=== PATIENT | female | born 1985 | race Caucasian/White ===

== ENCOUNTER → 2017-07-24 | Outpatient (CLI) | payer OTHER ==
[~2017-07-24] MED LIST: ALBU4 PO; ALBU90OI INH; ALPR.5 PO; AN ANTIBIOTIC; ANTOXYBENA LEFTEAR; AZIT250 PO; BENZ100A PO; BIRTHCONTROL; BUPR150T2; BUTASPCAF PO; CEFU250T47 PO; CEPH500 PO; CLON1 PO; CODBUTACEC PO; CRUTCH3 XX; CYCL10 PO; Cyclobenzaprine5 MG PO; DIPH50 PO; DOXY100 PO; DULO30 PO; GABA300 PO; HYDACE10B PO; HYDACE5 PO; HYDACE5325 PO; HYDPAM25 PO; IBUP400 PO; IBUP600 PO; IBUP800 PO; KETO10 PO; LAMO100; LAMO50 PO; METCAR500 PO; METPRE4DP PO; MIGRAINE MED; MULVITMINE; Macrobid 100 M100 MG PO; Monodox100 MG PO; NAPR500 PO; NAPR550 PO; NEOPOLHCSU OT; NYSTRI30T TOP; ONDA4 PO; OXCA150; OXCA300 PO; OXYACE5T PO; PARO10 PO; PARO20 PO; PRED20 PO; PROC10 PO; PROCODE120 PO; PROM25 PO; Prednisone20 MG PO; QUET100 PO; RXCYCL10 PO; RXHYDACE PO; RXNAPNA550 PO; RXONDA4ODT MM; RXPROACE PO; Robaxin-750750 MG PO; SPACE CHAMBER1 EACH MC; SULF10OPSA OU; SULTRIDS PO; SUMA25 PO; Sudogest30 MG PO; TOPI25 PO; TRAZ100 PO; TRAZ150T57 PO; Ultram50 MG PO; Vibramycin100 MG PO; ZIPR20; Zofran Odt4 MG SL; Zyprexa PO
[2017-07-24 16:45] LABS: Source, Urine Clean Catch
[2017-07-24 18:25] LABS: Appearance, Urine Turbid (Clear); Blood, Urine 5+ (Neg); Color, Urine Amber (P-Yellow); Glucose Qualitative, Urine Neg (Neg); Ketones, Urine 2+ (Neg); Leukocyte Esterase, Urine 2+ (Neg); Nitrite, Urine Pos (Neg); Protein, Urine 2+ (Neg); Urobilinogen, Urine 2+ (Normal)
[2017-07-24 18:37] LABS: Bilirubin, Urine 1+ (Neg)
[2017-07-24 18:39] LABS: Amorphous Heavy (0-Heavy); Bacteria Few /hpf; Red Blood Cells, Urine 0-2 /hpf (0-2); Squamous Epithelial Cells Few /hpf (Few); White Blood Cells, Urine 0-2 /hpf (0-5)
== END | disposition home or self-care (01) ==
LOC: LAB 16:44
PROVIDERS: Obstetrics & Gynecology
DX: R39.9 Unspecified symptoms and signs involving the genitourinary system (principal)
CPT/HCPCS: 81001; 87077; 87086; 87186

== ENCOUNTER → 2017-08-08 | Outpatient (CLI) | payer OTHER ==
[2017-08-09 09:59] LABS: Candida species (DNA Probe) Negative (NEGATIVE); G. vaginalis (DNA Probe) Positive (NEGATIVE); T. vaginalis (DNA Probe) Negative (NEGATIVE)
== END ==
LOC: LAB SHORT 12:04
PROVIDERS: Nurse Practitioner Family
DX: N76.0 Acute vaginitis (principal)
CPT/HCPCS: 87070; 87077; 87147; 87186; 87205; 87480; 87510; 87660

== ENCOUNTER 2017-11-08 21:43 | Emergency (ER) | payer OTHER ==
[~2017-11-08] VITALS: Ht 172.7 cm; Wt 59.0 kg
[~2017-11-08 21:43] MED LIST changes: -HYDPAM25 PO; -IBUP400 PO; -METCAR500 PO; -Macrobid 100 M100 MG PO
[2017-11-08] MEDS ORDERED: METCAR500 PO (21:48)
[2017-11-08] MEDS ORDERED: HYDPAM25 PO (21:48)
[2017-11-09] MEDS ORDERED: IBUP400 PO (00:05)
== END 2017-11-09 00:17 | disposition home or self-care (01) ==
LOC: ER 21:43
DX: S01.81XA Laceration without foreign body of other part of head, initial encounter (principal); W22.8XXA Striking against or struck by other objects, initial encounter; Z91.040 Latex allergy status; Z88.8 Allergy status to other drugs, medicaments and biological substances; Z79.899 Other long term (current) drug therapy; G43.909 Migraine, unspecified, not intractable, without status migrainosus; F17.210 Nicotine dependence, cigarettes, uncomplicated

== ENCOUNTER 2017-11-14 17:16 | Observation (INO) | payer OTHER ==
[~2017-11-14] VITALS: Ht 172.7 cm; Wt 56.7 kg
[~2017-11-14 17:16] MED LIST changes: +HYDPAM25 PO; +IBUP400 PO; +METCAR500 PO
[2017-11-14 20:01] LABS: Source, Urine Clean Catch
[2017-11-14 20:08] LABS: BASOPHILS ABSOLUTE AUTO 0.01 K/mm3 (0.00-0.23); BASOPHILS PERCENT AUTO 0 % (0-2); EOSINOPHILS ABSOLUTE AUTO 0.12 K/mm3 (0.00-0.68); EOSINOPHILS PERCENT AUTO 1 % (0-6); Hematocrit 47.7 % (33.0-51.0); Hemoglobin 15.8 g/dL (11.5-16.0); IMMATURE GRAN ABSOLUTE AUTO 0.02 K/mm3 (0.00-0.10); IMMATURE GRAN PERCENT AUTO 0 % (0-1); LYMPHOCYTES ABSOLUTE AUTO 3.55 K/mm3 (0.84-5.20); LYMPHOCYTES PERCENT AUTO 37 % (21-46); MONOCYTES ABSOLUTE AUTO 0.51 K/mm3 (0.16-1.47); MONOCYTES PERCENT AUTO 5 % (4-13); Mean Corpuscular HGB 31.6 pg (26.0-34.0); Mean Corpuscular HGB Conc 33.1 g/dL (31.5-36.5); Mean Corpuscular Volume 95 fL (80-100); Mean Platelet Volume 9.9 fL (9.1-12.4); NEUTROPHILS PERCENT AUTO 56 % (41-73); Platelet Count 286 K/mm3 (150-400); RDW Coefficient Variation 12.2 % (11.7-14.2); RDW Standard Deviation 41.8 fL (35.1-46.3); White Blood Cell Count 9.51 K/mm3 (4.00-11.30)
[2017-11-14 20:13] LABS: Appearance, Urine Clear (Clear); Bilirubin, Urine Neg (Neg); Blood, Urine 1+ (Neg); Color, Urine Yellow (P-Yellow); Glucose Qualitative, Urine Neg (Neg); Ketones, Urine Neg (Neg); Leukocyte Esterase, Urine Neg (Neg); Nitrite, Urine Neg (Neg); Protein, Urine Neg (Neg); Specific Gravity, Urine 1.025 (1.003-1.022); Urobilinogen, Urine NORM (Normal)
[2017-11-14 20:25] LABS: Amorphous Light (0-Heavy); Mucus Light (0-Heavy); Squamous Epithelial Cells Mod /hpf (Few)
[2017-11-14 20:26] LABS: Bacteria Rare /hpf; Calcium Oxalate Crystals Mod /hpf; White Blood Cells, Urine 0-2 /hpf (0-5)
[2017-11-14 20:29] LABS: U Amphetamine Screen DETECTED; U Barbituate Screen Not Detected; U Benzodiazapine Screen Not Detected; U Buprenorphine Screen Not Detected; U Cannabinoids Screen Not Detected; U Cocaine Screen Not Detected; U Methadone Screen Not Detected; U Methamphetamine Screen DETECTED; U Opiates Screen Not Detected; U Oxycodone Screen Not Detected; U Phencyclidine Screen Not Detected; U Propoxyphene Screen Not Detected
[2017-11-14 20:36] LABS: Ethanol (Alcohol), Blood, Med <3 mg/dL; Salicylate <1.7 mg/dL (2.8-20.0)
[2017-11-14 20:43] LABS: Alanine Aminotransfer (ALT/SGP 16 U/L (12-78); Albumin, Blood 4.4 g/dL (3.4-5.0); Albumin/Globulin Ratio 1.3 (0.8-1.8); Alk Phos 96 U/L (50-136); Anion Gap 9 mmol/L (6-16); Aspartate Aminotrans (AST/SGOT 12 U/L (12-37); Bilirubin, Total 0.6 mg/dL (0.1-1.0); Blood Urea Nitrogen 14 mg/dL (8-24); Bun/Creatinine Ratio 21.1 (12.0-20.0); CO2, Blood 25 mmol/L (21-32); Calcium, Blood 9.1 mg/dL (8.5-10.1); Chloride, Blood 108 mmol/L (98-108); Creatinine, Blood 0.67 mg/dL (0.40-1.00); Globulin, Blood 3.4 g/dL (2.2-4.0); Glomerular Filtration Rate >60 (60-); Glucose, Blood 91 mg/dL (70-99); Potassium, Blood 3.4 mmol/L (3.5-5.5); Sodium, Blood 142 mmol/L (136-145); Thyroid Stimulating Hormone 0.407 uIU/mL (0.360-4.800); Total Protein, Blood 7.8 g/dL (6.4-8.2)
[2017-11-14 20:53] LABS: Acetaminophen, Random <2.0 ug/mL (10.0-30.0)
== END 2017-11-15 13:30 | disposition home or self-care (01) ==
LOC: ER 17:16 → EOR 17:17
PROVIDERS: Emergency Medicine
DX: S70.12XA Contusion of left thigh, initial encounter (principal); S70.11XA Contusion of right thigh, initial encounter; S40.022A Contusion of left upper arm, initial encounter; S40.021A Contusion of right upper arm, initial encounter; S09.90XA Unspecified injury of head, initial encounter; F15.10 Other stimulant abuse, uncomplicated; F32.9 Major depressive disorder, single episode, unspecified; G43.909 Migraine, unspecified, not intractable, without status migrainosus; F17.210 Nicotine dependence, cigarettes, uncomplicated; Z91.040 Latex allergy status; Z91.041 Radiographic dye allergy status; Z79.899 Other long term (current) drug therapy; Y04.2XXA Assault by strike against or bumped into by another person, initial encounter
CPT/HCPCS: 36415; 70450; 80053; 81001; 81025; 84443; 85025; 99285; G0378; G0480; Q0177

== ENCOUNTER 2017-12-15 08:31 | Emergency (ER) | payer OTHER ==
[~2017-12-15] VITALS: Ht 172.7 cm; Wt 54.4 kg
== END 2017-12-15 09:49 | disposition left against medical advice (07) ==
LOC: ER 08:31
DX: Z53.21 Procedure and treatment not carried out due to patient leaving prior to being seen by health care provider (principal)

== ENCOUNTER 2018-03-22 10:09 | Emergency (ER) | payer OTHER ==
[~2018-03-22] VITALS: Ht 172.7 cm; Wt 53.5 kg
[2018-03-22 11:11] LABS: BASOPHILS ABSOLUTE AUTO 0.01 K/mm3 (0.00-0.23); BASOPHILS PERCENT AUTO 0 % (0-2); EOSINOPHILS ABSOLUTE AUTO 0.17 K/mm3 (0.00-0.68); EOSINOPHILS PERCENT AUTO 1 % (0-6); Hematocrit 41.5 % (33.0-51.0); Hemoglobin 14.1 g/dL (11.5-16.0); IMMATURE GRAN ABSOLUTE AUTO 0.04 K/mm3 (0.00-0.10); IMMATURE GRAN PERCENT AUTO 0 % (0-1); LYMPHOCYTES ABSOLUTE AUTO 1.86 K/mm3 (0.84-5.20); LYMPHOCYTES PERCENT AUTO 13 % (21-46); MONOCYTES ABSOLUTE AUTO 0.81 K/mm3 (0.16-1.47); MONOCYTES PERCENT AUTO 6 % (4-13); Mean Corpuscular HGB 31.5 pg (26.0-34.0); Mean Corpuscular Volume 93 fL (80-100); Mean Platelet Volume 9.4 fL (9.1-12.4); NEUTROPHILS ABSOLUTE AUTO 11.44 K/mm3 (1.96-9.15); NEUTROPHILS PERCENT AUTO 80 % (41-73); Platelet Count 308 K/mm3 (150-400); RDW Coefficient Variation 11.7 % (11.7-14.2); RDW Standard Deviation 39.8 fL (35.1-46.3); Red Blood Cell Count 4.47 M/mm3 (3.80-5.20); White Blood Cell Count 14.33 K/mm3 (4.00-11.30)
[2018-03-22 11:32] LABS: Alanine Aminotransfer (ALT/SGP 18 U/L (12-78); Albumin, Blood 3.8 g/dL (3.4-5.0); Albumin/Globulin Ratio 1.1 (0.8-1.8); Alk Phos 99 U/L (50-136); Anion Gap 7 mmol/L (6-16); Aspartate Aminotrans (AST/SGOT 9 U/L (12-37); Bilirubin, Total 1.8 mg/dL (0.1-1.0); Blood Urea Nitrogen 9 mg/dL (8-24); Bun/Creatinine Ratio 12.6 (12.0-20.0); CO2, Blood 23 mmol/L (21-32); Calcium, Blood 8.8 mg/dL (8.5-10.1); Chloride, Blood 107 mmol/L (98-108); Creatinine, Blood 0.72 mg/dL (0.40-1.00); Globulin, Blood 3.5 g/dL (2.2-4.0); Glomerular Filtration Rate >60 (60-); Glucose, Blood 93 mg/dL (70-99); Potassium, Blood 3.6 mmol/L (3.5-5.5); Sodium, Blood 137 mmol/L (136-145); Total Protein, Blood 7.3 g/dL (6.4-8.2)
[2018-03-22] MEDS ORDERED: Macrobid 100 M100 MG PO (14:03)
[2018-03-22] MEDS ORDERED: KETO10 PO (14:03)
== END 2018-03-22 14:34 | disposition home or self-care (01) ==
LOC: ER 10:09
PROVIDERS: Physician Assistant
DX: N30.90 Cystitis, unspecified without hematuria (principal); F15.10 Other stimulant abuse, uncomplicated; F17.210 Nicotine dependence, cigarettes, uncomplicated
CPT/HCPCS: 36415; 74176; 76830; 76856; 80053; 81025; 85025; 96361; 96374; 96375; 99284-25; J1885; J2405; J3010; J7030

== ENCOUNTER 2018-03-23 16:40 | Emergency (ER) | payer OTHER ==
[~2018-03-23] VITALS: Ht 172.7 cm; Wt 58.1 kg
[~2018-03-23 16:40] MED LIST changes: +Macrobid 100 M100 MG PO
[2018-03-23 19:02] LABS: U Amphetamine Screen DETECTED; U Barbituate Screen Not Detected; U Benzodiazapine Screen Not Detected; U Buprenorphine Screen Not Detected; U Cannabinoids Screen Not Detected; U Cocaine Screen Not Detected; U Methadone Screen Not Detected; U Methamphetamine Screen DETECTED; U Opiates Screen Not Detected; U Oxycodone Screen Not Detected; U Phencyclidine Screen Not Detected; U Propoxyphene Screen Not Detected
== END 2018-03-23 19:18 | disposition home or self-care (01) ==
LOC: ER 16:40
PROVIDERS: Internal Medicine
DX: N39.0 Urinary tract infection, site not specified (principal); F17.210 Nicotine dependence, cigarettes, uncomplicated; Z88.8 Allergy status to other drugs, medicaments and biological substances; Z91.040 Latex allergy status; Z91.02 Food additives allergy status
CPT/HCPCS: 96372; 99284; J1885

== ENCOUNTER 2018-07-24 15:22 | Emergency (ER) | payer OTHER ==
[~2018-07-24] VITALS: Ht 172.7 cm; Wt 54.4 kg
[2018-07-24] MEDS ORDERED: IBUP400 PO (18:06)
== END 2018-07-24 18:34 | disposition home or self-care (01) ==
LOC: ER 15:22
DX: S16.1XXA Strain of muscle, fascia and tendon at neck level, initial encounter (principal); M25.531 Pain in right wrist; Y04.8XXA Assault by other bodily force, initial encounter; Z91.040 Latex allergy status; Z91.041 Radiographic dye allergy status; Z88.8 Allergy status to other drugs, medicaments and biological substances; F17.210 Nicotine dependence, cigarettes, uncomplicated
CPT/HCPCS: 72040; 73080; 73110; 96372; 99284-25; J1885

== ENCOUNTER 2018-08-18 09:03 | Emergency (ER) | payer OTHER ==
[~2018-08-18] VITALS: Ht 172.7 cm; Wt 54.4 kg
[2018-08-18] MEDS ORDERED: CYCL10 PO (11:27)
[2018-08-18] MEDS ORDERED: Naprosyn500 MG PO (11:27)
== END 2018-08-18 11:45 | disposition home or self-care (01) ==
LOC: ER 09:03
DX: S16.1XXA Strain of muscle, fascia and tendon at neck level, initial encounter (principal); S29.012A Strain of muscle and tendon of back wall of thorax, initial encounter; M25.512 Pain in left shoulder; W00.0XXA Fall on same level due to ice and snow, initial encounter; Z88.8 Allergy status to other drugs, medicaments and biological substances; Z91.040 Latex allergy status; Z91.02 Food additives allergy status; F17.210 Nicotine dependence, cigarettes, uncomplicated
CPT/HCPCS: 73030; J1885

== ENCOUNTER 2019-08-13 17:36 | Inpatient (IN) | payer SELFPAY ==
[~2019-08-13] VITALS: Ht 172.7 cm; Wt 66.2 kg
[~2019-08-13 17:36] MED LIST changes: +Naprosyn500 MG PO
[2019-08-13 19:00] LABS: BASOPHILS ABSOLUTE AUTO 0.03 K/mm3 (0.00-0.23); BASOPHILS PERCENT AUTO 0 % (0-2); EOSINOPHILS ABSOLUTE AUTO 0.04 K/mm3 (0.00-0.68); EOSINOPHILS PERCENT AUTO 0 % (0-6); Hematocrit 43.5 % (33.0-51.0); Hemoglobin 14.4 g/dL (11.5-16.0); IMMATURE GRAN ABSOLUTE AUTO 0.09 K/mm3 (0.00-0.10); IMMATURE GRAN PERCENT AUTO 1 % (0-1); LYMPHOCYTES PERCENT AUTO 10 % (21-46); MONOCYTES ABSOLUTE AUTO 1.48 K/mm3 (0.16-1.47); MONOCYTES PERCENT AUTO 8 % (4-13); Mean Corpuscular HGB 31.3 pg (26.0-34.0); Mean Corpuscular HGB Conc 33.1 g/dL (31.5-36.5); Mean Corpuscular Volume 95 fL (80-100); NEUTROPHILS ABSOLUTE AUTO 14.94 K/mm3 (1.96-9.15); NEUTROPHILS PERCENT AUTO 81 % (41-73); Platelet Count 389 K/mm3 (150-400); RDW Coefficient Variation 11.7 % (11.7-14.2); RDW Standard Deviation 40.6 fL (35.1-46.3); White Blood Cell Count 18.38 K/mm3 (4.00-11.30)
[2019-08-13 19:12] LABS: Prothrombin Time Results 10.7 Sec (9.7-11.5)
[2019-08-13 19:15] LABS: Alanine Aminotransfer (ALT/SGP 13 U/L (12-78); Albumin, Blood 3.3 g/dL (3.4-5.0); Albumin/Globulin Ratio 0.8 (0.8-1.8); Alk Phos 113 U/L (50-136); Anion Gap 6 mmol/L (6-16); Aspartate Aminotrans (AST/SGOT 11 U/L (12-37); Bilirubin, Total 0.9 mg/dL (0.1-1.0); Blood Urea Nitrogen 16 mg/dL (8-24); Bun/Creatinine Ratio 24.8 (12.0-20.0); CO2, Blood 22 mmol/L (21-32); Chloride, Blood 105 mmol/L (98-108); Creatinine, Blood 0.64 mg/dL (0.40-1.00); Glomerular Filtration Rate >60 (60-); Glucose, Blood 131 mg/dL (70-99); Potassium, Blood 4.1 mmol/L (3.5-5.5); Sodium, Blood 133 mmol/L (136-145); Total Protein, Blood 7.3 g/dL (6.4-8.2)
[2019-08-13] MEDS ORDERED: LITH300C PO (23:47)
[2019-08-13] MEDS ORDERED: ZOLP5 PO (23:48)
[2019-08-13] MEDS ORDERED: ALBU90OI INH (23:49)
[2019-08-13] MEDS ORDERED: DIAZ5 PO (23:49)
[2019-08-13] MEDS ORDERED: ALPR.5 PO (23:50)
[2019-08-13] MEDS ORDERED: GABA300 PO (23:51)
[2019-08-13] MEDS ORDERED: SERT100 PO (23:51)
--- NOTE | 2019-08-14 00:31 | NUR ---
LATE ENTRY 0000 PATIENT STATED THAT SHE REALLY NEEDED TO GO OUTSIDE TO SMOKE AND TO SAY GOODBYE TO HER FRIENDS. THIS RN STATED THAT WE HAVE A POLICY HERE IN THE HOSPITAL THAT STATES THAT YOU MUST BE BACK IN YOUR ROOM WITHIN AN HOUR AFTER LEAVING; PATIENT AGREEABLE. THIS RN ALSO EXPLAINED TO HER THAT SHE WOULD NEED TO BE ABLE TO SELF AMBULATE OR HAVE SOMEONE WHEEL HER DOWN; PATIENT AGREEABLE.
--- NOTE | 2019-08-14 04:27 | NUR ---
SHIFT SUMMARY RECIEVED REPORT FROM MARY NAIR, ED @ 2545. ARRIVED TO MEDICAL FLOOR VIA STRETCHER @ 2248. ASSISTANCE REQUIRED TO TRANSFER FROM STRETCHER TO BED. ORIENTED TO ROOM AND CALL SYSTEM. ACCOMPANIED BY FRIENDS AND FAMILY. A/O, ABLE TO MAKE NEEDS KNOWN. COOPERATIVE WITH CARE. C/O PAIN/DISCOMFORT TO LLE RATED 8/10; MEDICATED PER EMAR. IV ABX INFUSED. SLIGHTLY TACHYCARDIC/AFEBRILE. ALL OTHER VS STABLE. APPEARED TO REST MUCH OF SHIFT. S/O AT BEDSIDE. BED IN LOWEST POSITION. CALL LIGHT AND BELONGINGS WITHIN REACH. WCTM. REPORT TO MICHAEL NAIR.
[2019-08-14 09:44] LABS: Hematocrit 38.8 % (33.0-51.0); Hemoglobin 12.6 g/dL (11.5-16.0); Mean Corpuscular HGB 30.4 pg (26.0-34.0); Mean Corpuscular HGB Conc 32.5 g/dL (31.5-36.5); Mean Corpuscular Volume 94 fL (80-100); Platelet Count 312 K/mm3 (150-400); RDW Coefficient Variation 11.9 % (11.7-14.2); RDW Standard Deviation 40.8 fL (35.1-46.3); Red Blood Cell Count 4.14 M/mm3 (3.80-5.20); White Blood Cell Count 16.58 K/mm3 (4.00-11.30)
[2019-08-14 17:24] LABS: Source, Urine Clean Catch
--- NOTE | 2019-08-14 17:24 | NUR ---
PT HAS SLEPT MOST OF THE DAY. SHE WAKES FOR MEALS. PT IS ALERT AND ORIENTED WHILE AWAKE. SHE HAS GONE OUT TO SMOKE ONCE, TAMPER TAPE APPLIED TO IV SITE. IT SUPPORT ENGINEER HAS BEEN SLEEPIN ON COUCH ALL SHIFT. NO ISSUES AT THIS POINT. NO ACUTE CHANGES. PATIENT ALLOWED LAB TO DRAW BLOOD AFTER SOME GENTLE PERSUASION FROM STAFF. URINE SAMPLE WAS OBTAINED WELL. CALL LIGHT WITHIN REACH.
[2019-08-14 17:36] LABS: Bilirubin, Urine Neg (Neg); Blood, Urine Neg (Neg); Glucose Qualitative, Urine Neg (Neg); Ketones, Urine Neg (Neg); Leukocyte Esterase, Urine 1+ (Neg); Nitrite, Urine Neg (Neg); Protein, Urine Neg (Neg); Specific Gravity, Urine 1.015 (1.003-1.022); Urobilinogen, Urine NORM (Normal)
[2019-08-14 17:45] LABS: Appearance, Urine Hazy (Clear); Color, Urine Yellow (P-Yellow)
[2019-08-14 17:46] LABS: Red Blood Cells, Urine 0-2 /hpf (0-2)
[2019-08-14 17:47] LABS: Bacteria Few /hpf; Squamous Epithelial Cells Mod /hpf (Few)
[2019-08-14 17:52] LABS: Trichomonas Rare /hpf
[2019-08-14 22:57] LABS: Vancomycin, Trough 6.6 ug/mL (5.0-10.0)
--- NOTE | 2019-08-15 04:25 | NUR ---
5424 PHYSICIAN CORRESPONDENCE NOTIFIED ON-CALL PROVIDER DR. NIX ABOUT PATIENT VEWS SCORE. EXPLAINED THAT SINCE ARRIVAL PATIENTS VS HAVE REMAINED WITHIN THE SAME RANGE AND HAS BEEN FEBRILE. PATIENTS LACTIC ACID THAT WAS DRAWN IN THE ED WAS 1.2. PHYSICIAN WILL ORDER FLUIDS.
--- NOTE | 2019-08-15 04:36 | NUR ---
SHIFT SUMMARY A/O, ABLE TO MAKE NEEDS KNOWN. COOPERATIVE WITH CARE. CALLS AND ANSWERS QUESTIONS APPROPRIATELY. C/O PAIN/ANXIETY X1; MEDICATED PER EMAR. RECIEVED SHOWER. IV ABX INFUSED WITHOUT COMPLICATION. APPEARED TO REST MUCH OF SHIFT. FLUIDS ORDERED (SEE PREVIOUS RN NOTE). WCTM. BED IN LOWEST POSITION. CALL LIGHT AND BELONGINGS WITHIN REACH. REPORT TO ONCOMING RN.
--- NOTE | 2019-08-15 08:34 | NUR ---
PT VERY AGGRESSIVE WITH STAFF THIS MORNING . PT WAS VERY UPSET WHEN NURSE WALKED IN WITH IV MEDS THAT WERE DUE AT 0830. NURSE EXPLAINED THAT THEY WERE DUE AND SINCE BREAKFAST HAD BEEN BROUGHT IN PRIOR THAT PT HAD BEEN UP . LINE ASSIGNER WAS IN DURING THIS TIME WHICH AT FIRST SHE REFUSED A DRAW BUT THEN CHANGED HER MIND SINCE SHE HAD IV ABX RUNNING AND BY THEN WAS EATING.
[2019-08-15 08:55] LABS: BASOPHILS ABSOLUTE AUTO 0.01 K/mm3 (0.00-0.23); BASOPHILS PERCENT AUTO 0 % (0-2); EOSINOPHILS ABSOLUTE AUTO 0.08 K/mm3 (0.00-0.68); EOSINOPHILS PERCENT AUTO 1 % (0-6); Hematocrit 37.3 % (33.0-51.0); Hemoglobin 12.1 g/dL (11.5-16.0); IMMATURE GRAN ABSOLUTE AUTO 0.09 K/mm3 (0.00-0.10); IMMATURE GRAN PERCENT AUTO 1 % (0-1); LYMPHOCYTES ABSOLUTE AUTO 2.76 K/mm3 (0.84-5.20); LYMPHOCYTES PERCENT AUTO 19 % (21-46); MONOCYTES ABSOLUTE AUTO 1.19 K/mm3 (0.16-1.47); MONOCYTES PERCENT AUTO 8 % (4-13); Mean Corpuscular HGB Conc 32.4 g/dL (31.5-36.5); Mean Corpuscular Volume 96 fL (80-100); Mean Platelet Volume 9.1 fL (9.1-12.4); NEUTROPHILS ABSOLUTE AUTO 10.15 K/mm3 (1.96-9.15); NEUTROPHILS PERCENT AUTO 71 % (41-73); Platelet Count 286 K/mm3 (150-400); RDW Coefficient Variation 11.8 % (11.7-14.2); RDW Standard Deviation 41.1 fL (35.1-46.3); White Blood Cell Count 14.28 K/mm3 (4.00-11.30)
[2019-08-15 09:11] LABS: Anion Gap 4 mmol/L (6-16); Blood Urea Nitrogen 13 mg/dL (8-24); Bun/Creatinine Ratio 18.5 (12.0-20.0); CO2, Blood 24 mmol/L (21-32); Calcium, Blood 8.3 mg/dL (8.5-10.1); Chloride, Blood 110 mmol/L (98-108); Glomerular Filtration Rate >60 (60-); Glucose, Blood 110 mg/dL (70-99); Potassium, Blood 3.9 mmol/L (3.5-5.5); Sodium, Blood 138 mmol/L (136-145)
--- NOTE | 2019-08-15 13:59 | NUR ---
PTS BECAME VERY AGGITATED AND STARTED PULLING AT LINES . IV WAS NO LONGER PATENT EVEN AFTER NURSE TRIED TO SAVE IT. PT BECAME AGGRESSIVE GRABBING AT NURSE. NURSE CALLED FOR SECURITY. PT ATTEMPTED TO CRAWL OUT THE ROOM TO LEAVE, NURSE TOLD HER SHE COULD LEAVE AND WOULD GET THE AMA FORM. SECURITY ARRIVED AND PT WAS HELPED BACK TO BED. NURSE STATED SHE WOULD LET PT SLEEP FOR AN HOUR BUT NEEDED TO GET IV PLACED PT IS ON LR DUE TO CELLULITIS. NURSE TOLD PT SHE WOULD NOT BE DOING THE IV AND WOULD FIND ANOTHER NURSE.
--- NOTE | 2019-08-15 16:06 | NUR ---
PROCEDURE NURSE IN TO PLACE IV. PATIENT BECAME VERY AGGITATED AND DEMONSTRATED AGGRESSIVE BEHAVIOR SCREAMING AND YELLING AT HANDLE TURNER "IF YOU DO NOT STOP TOUCHING ME I WILL FUCKING SLUG YOU IN YOUR STOMACH?" THE PROFANITIES AND SCREAMING CONTINUES WITH ADDITIONAL THREATS. IV EVENTUALLY PLACED. PRIMARY RN NOTIFIED
--- NOTE | 2019-08-15 16:47 | NUR ---
pt refused vital signs at 1645
--- NOTE | 2019-08-15 18:06 | NUR ---
PT HAS BEEN VIOLENT BOTH PHYSICALLY AND VERBALLY TO STAFF THIS WHOLE SHIFT. THE ONLY QUIET WAS WHEN SHE WAS OUT SMOKING OR SLEEPING. SECURITY CALLED AND BACK UP NURSES NEEDED THROUGH OUT THE SHIFT. DURING AN OUTRAGE PT PULLED OUT IV WHICH RESULTED IN A NEW ONE NEEDING TO BE PLACED. DURING THIS EPISODE PT STATED SHE WAS LEAVING SO THIS NURSE WENT TO GET THE AMA PAPERS WHILE PT WAS GETTING DOWN ON THE FLOOR TO CRAWL OUT. HER FRIENDS STEPPED IN AND GOT HER BACK INTO BED AND PT CHANGED HER MIND TO STAY. DURING THE APPLICATION OF THE NEW IV PATIENT THREATENED TO PUNCH THE VERY NURSE IN HER BELLY. PT DEMANDS TO GO OUT TO SMOKE OR SHE WILL NOT ALLOW NURSE TO ACCOUNTS COLLECTOR THE LR WHICH HAS BEEN SCHEDULED TO RUN ALL SHIFT. PT IS NON COMPLIANT WITH NEARLY ALL CARES AND BELLIGERENT WITH ALL STAFF. CALL LIGHT WITHIN REACH.
[2019-08-15 21:40] LABS: Vancomycin, Trough 14.6 ug/mL (5.0-10.0)
--- NOTE | 2019-08-16 03:29 | NUR ---
8104 PATIENT CONVERSTATION EXPRESSED THAT SHE HAS BEEN DRINKING SINCE 0000. STATES WILL NOT HAVE SURGERY TODAY 07/16/19. STATES HUNGRY/THIRSTY AND REQUESTING SOMETHING TO EAT/DRINK. EDUCATED THAT IF PATIENT EATS OR DRINKS SHE MAY NOT HAVE HER SX PROCEDURE. PATIENT STATES UNDERSTANDING, BUT REITERATES THAT SHE WILL NOT GOING TO HAVE SURGERY TODAY 07/16/19 ANYWAYS. WILL RELAY NON-COMPLIANCE TO DAY SHIFT RN.
--- NOTE | 2019-08-16 04:39 | NUR ---
SHIFT SUMMARY A/O, ABLE TO MAKE NEEDS KNOWN. COOPERATIVE WITH CARE; UNTIL AROUND 0300 (SEE PREVIOUS RN NOTE). C/O PAIN/DISCOMFORT X1 TO LLE; MEDICATED PER EMAR. TO HAVE A CONSULT WITH ORTHO TODAY. VITAL SIGNS REMAIN ON TREND WITH PREVIOUS. REMAINS FEBRILE. OUT TO SMOKE WITH S/O AND SISTER WHOM HAVE REMAINED @ BEDSIDE T/O NIGHT. IV ABX INFUSED WITHOUT COMPLICATION WELL CONTINUOUS LR. NO OTHER ACUTE CHANGES NOTED. WCTM. BED IN LOWEST POSITION. CALL LIGHT AND BELONGINGS WITHIN REACH. REPORT TO ONCOMING RN.
[2019-08-16 09:10] LABS: BASOPHILS ABSOLUTE AUTO 0.01 K/mm3 (0.00-0.23); BASOPHILS PERCENT AUTO 0 % (0-2); EOSINOPHILS ABSOLUTE AUTO 0.11 K/mm3 (0.00-0.68); EOSINOPHILS PERCENT AUTO 1 % (0-6); Hematocrit 34.4 % (33.0-51.0); Hemoglobin 11.1 g/dL (11.5-16.0); IMMATURE GRAN ABSOLUTE AUTO 0.06 K/mm3 (0.00-0.10); IMMATURE GRAN PERCENT AUTO 1 % (0-1); LYMPHOCYTES ABSOLUTE AUTO 2.03 K/mm3 (0.84-5.20); LYMPHOCYTES PERCENT AUTO 17 % (21-46); MONOCYTES ABSOLUTE AUTO 0.71 K/mm3 (0.16-1.47); MONOCYTES PERCENT AUTO 6 % (4-13); Mean Corpuscular HGB Conc 32.3 g/dL (31.5-36.5); Mean Corpuscular Volume 96 fL (80-100); Mean Platelet Volume 9.2 fL (9.1-12.4); NEUTROPHILS ABSOLUTE AUTO 9.03 K/mm3 (1.96-9.15); NEUTROPHILS PERCENT AUTO 76 % (41-73); Platelet Count 286 K/mm3 (150-400); RDW Coefficient Variation 11.4 % (11.7-14.2); RDW Standard Deviation 40.6 fL (35.1-46.3); Red Blood Cell Count 3.58 M/mm3 (3.80-5.20); White Blood Cell Count 11.95 K/mm3 (4.00-11.30)
[2019-08-16 09:30] LABS: Anion Gap 4 mmol/L (6-16); Blood Urea Nitrogen 11 mg/dL (8-24); Bun/Creatinine Ratio 19.8 (12.0-20.0); CO2, Blood 25 mmol/L (21-32); Calcium, Blood 8.4 mg/dL (8.5-10.1); Chloride, Blood 107 mmol/L (98-108); Creatinine, Blood 0.56 mg/dL (0.40-1.00); Glomerular Filtration Rate >60 (60-); Glucose, Blood 115 mg/dL (70-99); Potassium, Blood 3.8 mmol/L (3.5-5.5); Sodium, Blood 136 mmol/L (136-145)
--- NOTE | 2019-08-16 12:41 | NUR ---
SHE WENT OUTSIDE 30 MIN AGO WHEELING HERSELF IN A W/C. BOTH FEET UP ON PEDDLES. LEFT LOWER LEG WOUND APPARENTLY EXTENDED OVER THE WEEKEND. WAS HERE AND IS SCHEDULING HER FOR SURGERY TOMORROW SINCE SHE REFUSED TO REMAIN NPO LAST NIGHT. SHE HAS AGREED TO REMAIN NPO FOR 8 HRS. HE SAID HE DID NOT KNOW WHAT TIME THE OR IS OPEN FOR HER TOMORROW. I RECEIVED AN ORDER FROM FOR D5LR TONIGHT WHILE NPO BECAUSE THE PATIENT IS WORRIED ABOUT HYPOGLYCEMIA. SHE DC'D THE CURRENT 2ND BAG OF LR IT IS UNNECESSARY. SHE NOW IS ARRIVING BACK TO HER ROOM WITH 3 FRIENDS.
--- NOTE | 2019-08-16 16:35 | NUR ---
SHE SHOWERED THIS AFTERNOON THEN WAS UPSET AND CHOSE TO WALK TO THE OUTSIDE INSTEAD OF USING THE W/C THAT WAS IN HER ROOM. HER FRIEND KE HAD LEFT THE ROOM. SHE KNEW WE NEEDED TO CONNECT HER 2PM ANTIBIOTIC BUT LEFT ANYWAY. ON RETURN FROM OUTSIDE (A FRIEND WHEELED HER BACK UP HERE), HER LEFT CALF WAS BLEEDING A LITTLE. SHE ALLOWED ME TO LIGHTLY CLEAN IT AND PUT A NONADHERENT PAD AND EROS WRAP ON. SHE REFUSED HER 2 AFTERNOON IV ANTIBIOTICS. SHE SAID HER PAIN IS OUT OF CONTROL. I HAD THIS CONVERSATION WITH EARLIER. HER OXY WAS DOUBLED. SHE TOOK THAT AND XANAX TOGETHER AT 1150. IT IS TOO SOON FOR MORE. SHE REFUSES TYLENOL AND SEROQUEL. SHE HAS BEEN SWEARING AND SAYS SHE CAN'T STAND BEING HERE. WILL CONTINUE TO TRY TO CARE FOR HER.
--- NOTE | 2019-08-16 18:20 | NUR ---
SHE IS TALKING OF GOING AMA. SHE REFUSED HER AFTERNOON ANTIBIOTICS. SHE SHOWERED. SHE IS IN HER OWN PAJAMAS BUT FEELS LIKE SHE HAS NOTHING TO WEAR. SHE WANTS TO GO HOME AND GET CLOTHES. SHE SAYS NO ONE CAN BRING THEM. I EXPLAINED THAT IS NOT POSSIBLE. SHE UNDERSTANDS IF SHE WANTS SURGERY, SHE NEEDS TO BE NPO AFTER MN. D5LR IS ORDERED FOR WHEN SHE IS NPO. OXYCODONE AND XANAX GIVEN X2. SHE REFUSES TYLENOL AND SEROQUEL. SHE SAYS SHE WILL TAKE THE SEROQUEL WITH HER TRAZADONE TONIGHT THOUGH.
--- NOTE | 2019-08-16 21:04 | NUR ---
1934- ALEJANDRINA LEFT WITH A BAG OF CLOTHES IN A BACKPACK STATING SHE WAS LEAVING TO GO VISIT HER GRANDMOTHER UP AT [facility]. INFORMED HER THAT IF SHE LEAVES SHE WILL BE DISCHARGED. SHE INFORMED ME THAT SHE WILL BE BACK BUT SHE IS LEAVING NO MATTER WHAT. OFFERED HER THE AMA PAPERWORK, SHE DID NOT WANT TO SIGN IT. CALLED CHARGE NURSE JOHNSON AND INFORMED OF THE SITUATION. SHE SAID TO GIVE IT AN HOUR PER REGULATIONS AND IF NOT BACK WE WILL DISCHARGE HER. SHE ALSO REFUSED VITALS AND ASSESSMENT. 2106- PATIENT STILL NOT BACK OF THIS TIME, CHARGE NURSE ELIZABETH INFORMED.
--- NOTE | 2019-08-16 21:28 | NUR ---
PT HAS RETURNED TO ROOM
--- NOTE | 2019-08-16 22:50 | NUR ---
2134- CHARGE NURSE'S AND I WERE IN THE MIDDLE OF DISCHARGEING THE PATIENT SHE HAD NOT RETURNED AND IT HAS BEEN 2 HOURS. WHEN SHE WAS BEING BROUGHT UP THE HALLWAY BY A MAN PUSHING HER IN THE WHEELCHAIR. SHE WAS CRYING AND SAYING SHE WAS AFRAID SHE MIGHT LOSE HER LEG. CHARGE NURSE ELIZABETH INFORMED HER THAT SHE ALMOST GOT DISCHARGED, AND REVIEWED THE RULES WITH HER. SHE WAS ASSISTED INTO THE ROOM. SHE HAD SEVERAL REQUEST LIKE LINEN CHANGE, LIST OF SNACKS SHE WANTED, TO TAKE A SHOWER, ECT. SHE REFUSED HER MEDS AT THIS TIME. INFORMED HER THAT I WOULD BE HOOKING TO AN IV THAT WILL BE ATTACHED ALL NIGHT AND SHE WOULD NOT BE ALLOWED TO GO OUTSIDE. SHE SAID SHE UNDERSTOOD. 2249-ALEJANDRINA IS IN BED, FAMILY FRIEND IS AT THE BEDSIDE. SHE AGREED TO BE HOOKED UP TO IV ANTIBOTICS. FINALLY GOT HER TO TAKE HER NIGHT MEDS. AGAIN INFORMED HER THAT SHE WILL BE HOOKED UP TO THE IV THE REST OF THE NIGHT. IV FLUSHED. ANTIBOTIC HUNG.
--- NOTE | 2019-08-17 00:48 | NUR ---
SCD'S ORDERED PATIENT REFUSED TO HAVE ON.
--- NOTE | 2019-08-17 05:24 | NUR ---
SHIFT SUMMARY: ALEJANDRINA LEFT FOR 2 HOURS AT START OF SHIFT, STATES SHE WAS IN A MOTERHOME OUT IN THE PARKING LOT WITH SOME FRIENDS. SHE WAS ALMOST DISCHAGED AMA, BUT WE WERE PACKING UP HER ROOM SHE RETURNED TO HER ROOM. SHE WAS INFORMED AGAIN THAT SHE IS NOT TO LEAVE THE HOSPTIAL FOR MORE THEN AN HOUR OR SHE WILL BE DISCHARGED. SHE WAS VERY UPSET STATING SHE GOT SCARED ABOUT LOSING HER LEG. REASSURRED HER THAT IS NOT THE CASE. SHE HAD FAMILY FRIEND SHOWED UP SHORTLY AFTER HER RETURN, WHICH HELPED TO CALM HER DOWN AND GET HER TO COOPERATE. CIRILO TOOK HER NIGHT MEDS AND ALLOWED HER IV TO BE HOOKED UP TO ANTIBOTICS. HER FRIEND LEFT AND ANOTHER ONE SHOWED UP AND STAYED THE REST OF THE NIGHT IN THE ROOM. CIRILO FELL ASLEEP AFTER TAKING HER SEREQUEL AND TRAZADONE AND HAS BEEN ASLEEP THE REST OF THE NIGHT. IV HAS BEEN INFUSING D5LR. SHE HAS NPO FAR WE KNOW SINCE 2 AM. DRESSING TO THE LEG WAS REMOVED FOR HER TO TAKE A SHOWER AND IT WAS NEVER PUT BACK ON ALLOWING IT TO BE OPEN TO AIR. DRAINAGE WAS MILD SEROUS SANGUOUS. REDNESS WAS ALL THE WAY AROUND THE LEG AND LEG WAS SWOLLEN. NO OTHER ACUTE CHANGES OCCURRED THIS SHIFT. WILL REPORT TO DAY SHIFT.
--- NOTE | 2019-08-17 06:10 | NUR ---
PT HAS REFUSED TO HAVE MORNING VITAL SIGNS TAKEN
--- NOTE | 2019-08-17 11:36 | NUR ---
TO SURGERY VIA [facility]. HER FRIEND MAULIK THAT HAS BEEN WITH HER SINCE LAST NIGHT WENT WITH HER. SHE HAS SLEPT ALL MORNING EXCEPT FOR GETTING UP TO THE [facility] ABOUT 0915 TO VOID. SHE WAS COOPERATIVE WHEN SURGERY RN ARRIVED. SHE REMOVED HER CLOTHES AND PUT HER HOSPITAL GOWN ON. SHE STOOD AND TRANSFERRED TO THE [facility]. SHE ASKED TO GO OUT AND SMOKE BUT THERE WASN'T TIME. SMALL SPOT OF BLOOD ON BOTTOM SHEET FROM HER L LEG WOUND. IVF'S STOPPED FOR TRANSPORT AND FLUSHED WELL.
--- NOTE | 2019-08-17 12:48 | NUR ---
History, Chart, Medications and Allergies reviewed before start of procedure.Patient confirms NPO status and agrees with scheduled surgery. Pre-Op teaching done. Pt verbalizes understanding. THE PATIENT WAS BROUGHT DOWN FROM THE MEDICAL FLOOR, AND WAS VERY SLEEPY. THE PATIENT WILL RESPOND TO VEABAL REQUEST THAT HAVE TO BE REPEATED.
--- NOTE | 2019-08-17 13:52 | NUR ---
08/17/19 1352 Radha Holcomb PT ON SCHEDULED ABX.
[2019-08-17 17:23] LABS: Vancomycin, Trough 6.9 ug/mL (5.0-10.0)
--- NOTE | 2019-08-17 18:19 | NUR ---
SHE RETURNED FROM O.R. AT 1500. SHE WAS SLEEPY BUT AROUSABLE. MAULIK IS AT HER SIDE. VSS. NO DRAINAGE EVIDENT THROUGH THE L LEG EROS WRAP. L LEG ELEVATED ON 2 PILLOWS. SHE HAS MOSTLY SLEPT BUT WOKE UP AND ATE 2 CANDY BARS. SHE VOIDED ON BSC. SHE SAID HER LEG WAS REALLY BURNING. I GAVE HER OXYCODONE AND XANAX. SHE WAS DISAPPOINTED THAT IT WASN'T MORE BUT WAS COOPERATIVE. A POWERGLIDE WAS PUT INTO HER CACHORRO. POST OP IVF'S STARTED AND ANTIBIOTICS RESUMED.
--- NOTE | 2019-08-17 20:38 | NUR ---
2037-ALEJANDRINA WAS SITTING UP RIGHT IN BED, SOUND ASLEEP. IV INFUSING TO POWERGLIDE IN THE RIGHT UPPER ARM. ALEJANDRINA WAS VERY LETHARGIC BUT WAS ABLE TO OPEN HER EYES AND FOLLOW DIRECTION WHEN ASKED. WAS GOING TO WITHOLD THE TRAZADONE DUE TO HER SLEEPY STATE BUT SHE SAID SHE WANTED IT. WILL MONITOR HER THROUGHOUT THE NIGHT WITH IT. CONTINUOUS BIOX IS ON AND SATS ARE IN THE 90'S. HUNG ANTIBOTIC THAT WAS DUE FOR DAY SHIFT, THEY RAN LATE ON IV MEDS. SHE TOOK ALL HER MEDS WITH NO PROBLEMS. LEFT LEG ON PILLOWS EROS WRAP OVER DRESSING IS INTACT. WILL CONTINUE TO MONITOR.
[2019-08-18 05:52] LABS: BASOPHILS ABSOLUTE AUTO 0.01 K/mm3 (0.00-0.23); BASOPHILS PERCENT AUTO 0 % (0-2); EOSINOPHILS PERCENT AUTO 0 % (0-6); Hematocrit 34.4 % (33.0-51.0); Hemoglobin 11.1 g/dL (11.5-16.0); IMMATURE GRAN ABSOLUTE AUTO 0.04 K/mm3 (0.00-0.10); IMMATURE GRAN PERCENT AUTO 0 % (0-1); LYMPHOCYTES ABSOLUTE AUTO 1.11 K/mm3 (0.84-5.20); LYMPHOCYTES PERCENT AUTO 10 % (21-46); MONOCYTES ABSOLUTE AUTO 0.26 K/mm3 (0.16-1.47); MONOCYTES PERCENT AUTO 2 % (4-13); Mean Corpuscular HGB 30.8 pg (26.0-34.0); Mean Corpuscular HGB Conc 32.3 g/dL (31.5-36.5); Mean Corpuscular Volume 96 fL (80-100); Mean Platelet Volume 10.1 fL (9.1-12.4); NEUTROPHILS ABSOLUTE AUTO 9.93 K/mm3 (1.96-9.15); NEUTROPHILS PERCENT AUTO 87 % (41-73); Platelet Count 292 K/mm3 (150-400); RDW Coefficient Variation 11.3 % (11.7-14.2); RDW Standard Deviation 39.8 fL (35.1-46.3); White Blood Cell Count 11.35 K/mm3 (4.00-11.30)
[2019-08-18 06:12] LABS: Anion Gap 4 mmol/L (6-16); Blood Urea Nitrogen 13 mg/dL (8-24); Bun/Creatinine Ratio 25.2 (12.0-20.0); CO2, Blood 29 mmol/L (21-32); Calcium, Blood 8.4 mg/dL (8.5-10.1); Chloride, Blood 108 mmol/L (98-108); Creatinine, Blood 0.52 mg/dL (0.40-1.00); Glomerular Filtration Rate >60 (60-); Glucose, Blood 150 mg/dL (70-99); Potassium, Blood 4.4 mmol/L (3.5-5.5); Sodium, Blood 141 mmol/L (136-145)
--- NOTE | 2019-08-18 06:21 | NUR ---
SHIFT SUMMARY: ALEJANDRINA HAS SLEPT THROUGHOUT THE NIGHT UP TO 5 AM. SHE DID WAKE UP FOR A SHORT PERIOD TO TAKE HER MEDS AT 2100. IV HAS BEEN INFUSING THROUGHOUT THE NIGHT WITH NO PROBLEMS. WHEN SHE WOKE AT 5AM SHE WAS YELLING AND SCREAMING AT MAULIK HER SUPPOSED BOYFRIEND IN THE ROOM. ASKED THEM TO KEEP THE NOISE DOWN EVENTUALLY SHE KICKED HIM OUT OF THE ROOM AND TOLD HIM AGAIN NOT TO COME BACK. PAIN MEDICATION WAS GIVEN FOR THE FRIST TIME AROUND THIS TIME ALONG WITH A XANAX. DRESSING TO LLE HAS REMAINED INTACT AND ELEVATED. SHE IS COOPERATIVE WITH STAFF UPON AWAKING AND WHEN MAULIK LEFT. NO OTHER ACUTE CHANGES OCCURRED THIS SHIFT. WILL REPORT TO DAY SHIFT.
[2019-08-18 11:10] LABS: Vancomycin, Trough 10.1 ug/mL (5.0-10.0)
--- NOTE | 2019-08-18 15:59 | NUR ---
SHIFT SUMMARY PATIENT HAS HAD NO ACUTE CHANGES THIS SHIFT. DR. MUIR IN TO VISIT AND STATED HE WOULD RETURN AROUND DINNER TIME TO DO THE DRESSING CHANGE. PATIENT HAS BEEN MEDICATED PER EMAR. SHE IS GOING OUT TO SMOKE OCCASSIONALLY. COOPERATIVE WITH CARES. NO ACUTE ISSUES NOTED.
--- NOTE | 2019-08-18 21:54 | NUR ---
1899-SHIFT CHANGE, ALEJANDRINA WAS HEADING OUTSIDE WITH A FRIEND IN THE WC. STATES SHE WILL BE BACK, GOING OUT TO SMOKE. 1940-ALEJANDRINA IS BACK IN THE ROOM. SHE HAD TO MALE FRIENDS IN THE ROOM AT THIS TIME. SHE AGREED TO FINISH HER VANCO THAT WAS DUE, INFORMED HER SHE MISSED HER OTHER ANTIBOTIC TODAY WITH HER BEING IN AND OUT SO MUCH. ENCOURAGED HER TO STAY IN THE ROOM FOR HER ANTIBOTICS TIMES. AND AGAIN NOT TO LEAVE THE ROOM LONGER THEN AN HOUR. VANCO INFUSING. 2011- ADMINISTERED MEDICATIONS. SHE WAS PLAYING ON HER PHONE, BEING COOPERATIVE. DENIED ANY PAIN OR DISCOMFORT, DISTRACTED BY HER TEXTING. DRESSING TO LEG IS INTACT. SHE IS KEEPING IT ELEVATED. NO OTHER CONCERNS WERE NOTED. 2029-IV COMPLETED, SL THE PATIENT DID NOT WANT TO BE ON THE IV FLUIDS. NOTICED SHE DID NOT TAKE HER SEREQUEL AND TRAZADONE, SHE HAD PUT THEM IN HER BOX. SHE SAID SHE DID NOT WANT TO GO TO SLEEP YET SO SHE DID NOT TAKE THEM. SHE WAS VISITING WITH ANOTHER MALE GENTALMAN IN THE ROOM, AND WAS PLANNING ON GOING OUT TO SMOKE. 2119- PATIENT OUTSIDE TO SMOKE, LEFT IN WC. 2153- PATIENT BACK IN ROOM WITH FRIENDS.
--- NOTE | 2019-08-19 06:41 | NUR ---
SHIFT SUMMARY: ALEJANDRINA WAS VERY COOPERATIVE THROUGHOUT THE SHIFT. SHE HAS HAD SEVERAL OF HER FRIENDS IN AND OUT AND ALL WITH NO PROBLEMS. SHE DID MISS A DAY SHIFT ANTIBOTIC BUT REMAINED IN THE ROOM FOR ALL SOCIAL MEDIA COMMUNITY MANAGER VITALS. SHE HAS BEEN AWAKE ALL NIGHT. SHE DID NOT TAKE HER TRAZADONE OR SERQUEL, SHE SAID SHE DID BUT THEN HAD THEM PUT ASIDE. SHE HAS BEEN IN AND OUT OF THE ROOM TO SMOKE BUT HAS BEEN BACK WITH IN THE HOUR TIME OR WHEN ASKED TO BE BACK AT A CERTAIN TIME. DRESSING TO LEG HAS REMAINED CDI. IV SL. VITALS WNL. NO OTHER ACUTE CHANGE TO NOTE THIS SHIFT.
--- NOTE | 2019-08-19 10:10 | NUR ---
THIS MORNING PATIENT HAS BEEN VERY TEARFUL STATING "MY LIFE MEANS NOTHING". I ASKED IF SHE WAS FEELING SUICIDAL. PATIENT STATED "NO I AM NOT GOING TO TAKE THE PUSSY WAY OUT OF THIS." PATIENT CRYING OFF AND ON. APPEARS VERY DOWN AT THIS TIME. THIS RN FOUND 2 WHITE PILLS IN A HOSPITAL PILL CUP IN HER ROOM. THIS RN DISPOSED OF THE PILLS INTO SHARPS CONTAINER. PATIENT HAS BEEN ON AND OFF THE PHONE FREQUENTLY COMPLAINING OF L LEG PAIN. MEDICATED PER EMAR, ANTI ANXIETY PER EMAR.
[2019-08-19] MEDS ORDERED: Vsl#3 Capsule1 EACH PO (11:26)
--- NOTE | 2019-08-19 11:26 | NUR ---
PATIENT STATES THAT SHE HAS BEEN "SO DOPED UP FROM ALL THE MEDICATION YOUVE GIVEN ME THAT I DONT REMEMBER HAVING SURGERY OR THE LAST 3 DAYS." THIS RN REQUESTED THAT LAB COME TO INITIATE A BLOOD DRAW AND PATIENT REFUSED STATING "I NEED TO HAVE A MOMENT TO BREATHE, GO OUTSIDE AND SMOKE, AND GET MY LIFE TOGETHER." SHE IS TEARFUL, THROWING PERSONAL BELONGINGS AROUND THE ROOM. STATED "I DONT KNOW IF I EVEN TRUST MY BOYFRIEND RIGHT NOW." THIS RN ASKED IF SHE FELT THE BOYFRIEND, WHO IS SITTING WITH HIS HEAD DOWN ON THE SLEEPING BENCH, NEEDED TO LEAVE. PATIENT STATED "NO I TRUST HIM MORE THAN I TRUST YOU." THIS RN AGAIN ENCOURAGED THE LAB DRAW UPON RETURN TO THE UNIT FROM GOING OUTSIDE TO SMOKE.
[2019-08-19] MEDS ORDERED: AMOCLA875 PO (11:27)
[2019-08-19] MEDS ORDERED: BECL25NI INH (11:28)
[2019-08-19] MEDS ORDERED: Percocet 10-321 EACH PO (11:28)
[2019-08-19 13:12] LABS: BASOPHILS ABSOLUTE AUTO 0.01 K/mm3 (0.00-0.23); BASOPHILS PERCENT AUTO 0 % (0-2); EOSINOPHILS ABSOLUTE AUTO 0.11 K/mm3 (0.00-0.68); EOSINOPHILS PERCENT AUTO 1 % (0-6); Hemoglobin 12.3 g/dL (11.5-16.0); IMMATURE GRAN ABSOLUTE AUTO 0.04 K/mm3 (0.00-0.10); IMMATURE GRAN PERCENT AUTO 0 % (0-1); LYMPHOCYTES ABSOLUTE AUTO 2.53 K/mm3 (0.84-5.20); LYMPHOCYTES PERCENT AUTO 24 % (21-46); MONOCYTES ABSOLUTE AUTO 0.49 K/mm3 (0.16-1.47); MONOCYTES PERCENT AUTO 5 % (4-13); Mean Corpuscular HGB 31.1 pg (26.0-34.0); Mean Corpuscular HGB Conc 32.4 g/dL (31.5-36.5); Mean Corpuscular Volume 96 fL (80-100); Mean Platelet Volume 8.9 fL (9.1-12.4); NEUTROPHILS ABSOLUTE AUTO 7.52 K/mm3 (1.96-9.15); NEUTROPHILS PERCENT AUTO 70 % (41-73); Platelet Count 346 K/mm3 (150-400); RDW Coefficient Variation 11.4 % (11.7-14.2); Red Blood Cell Count 3.96 M/mm3 (3.80-5.20)
[2019-08-19 13:33] LABS: Vancomycin, Trough 11.5 ug/mL (5.0-10.0)
--- NOTE | 2019-08-19 18:17 | NUR ---
SHIFT SUMMARY PATIENT HAS HAD NO ACUTE CHANGES THIS SHIFT. SHE HAS STATED SHE DOES NOT REMEMBER ANY EVENTS OR THE SURGERY THAT OCCURRED THE LAST 3 DAYS. SHE WAS EASILY AGGITATED AND UPSET WITH STAFF THROUGHOUT THE DAY. AT THIS TIME SHE IS SITTING IN BED LISTENING TO MUSIC, ORGANZING HER STICKERS. NO COMPLAINTS. IV ANTIBIOTICS RUNNING AT THIS TIME.
--- NOTE | 2019-08-20 | NUR ---
08/19/192029 Pt declined seroquel and trazodone until around mid-night. RN WILL HOLD THESE MEDS UNTIL THEN.
--- NOTE | 2019-08-20 07:26 | NUR ---
08/20/19 0600 PT SLEEPING WELL. VITALS STABLE. PT GOES OUTSIDE SEVERAL TIMES/SHIFT "TO SMOKE". PT HAS BEEN PLEASANT THIS SHIFT. UNEVENTFUL NIGHT.
[2019-08-20] MEDS ORDERED: CLIN300 PO (09:05)
--- NOTE | 2019-08-20 11:33 | NUR ---
DISCHARGE NOTE. THIS AM THIS RN MET WITH PATIENT AND INFORMED PATIENT THAT DR. MUIR WOULD BE COMING IN AROUND 9AM TO DO A DRESSING CHANGE. THIS RN PRE MEDICATED PATIENT WITH ANXIETY MED AND PAIN MEDICATION PER EMAR. DR MUIR ARRIVED SHORTLY AFTER 0830. THIS RN ASSISTED DR. MUIR TO REMOVE PATIENT OUTTER DRESSING THAT WAS COVERING HER WOUND. PATIENT SCREAMING YELLING "GET THE FUCK OUT, DONT TOUCH ME". DR. MUIR STATED I WILL GIVE YOU A MOMENTS OF REST AND WE STEPPED OUT. DR. MUIR MYSELF, DARIA RN AND BAR RN RETURNED TO THE ROOM FOR DR. MUIR TO REMOVE THE PACKING FROM PATIENT LEG. PATIENT YELLING AND CURSING AT DR. MUIR HE PULLED THE PACKING OUT. DR. MUIR THEN INFROMED PATIENT THAT THE WOUND NEEDED TO BE PACK. PATIENT SAID "DONT FUCKING TOUCH ME." DR. DESAI PLACED A DRY DRESSING OVER THE LEG AND WRAPPED THE LEG AND APPLIED EROS BANDAGE. STATED SHE NEEDED TO KEEP DRESSING DRY. CHANGE DRESSING DAILY. THIS RN GAVE PATIENT A 7 DAY SUPPLY OF 4X4 TO COVER THE DRESSING, WRAP TO WRAP THE DRESSING AND AN ADDITIONAL EROS WRAP. PATIENT IS AT THIS POINT OKAY TO DISCHARGE. PATIENT AND HER BOYFRIEND HAD AN ALTERCATION WITH WORDS. BOYFRIEND STORMED OUT OF ROOM STATING "SHE IS ALL YOURS." THIS RN WENT TO FOLLOW UP WITH PATIENT INQURING ABOUT WHERE SHE WOULD BE STAYING. PATIENT STATED SHE WAS HOMELESS. THIS RN CONTACTED THE AUDIO VISUAL EQUIPMENT RENTAL CLERK AND PATIENT ADVOCATE. WE ARRANGED FOR A 1 NIGHT STAY AT A HOTEL. ORAL ANTIBIOTICS TO BE PICKED UP AT [facility], COVERED BY THE HOSPITAL. HARD SCRIPT GIVEN TO PATIENT TO FOR PERCOCET. DR. MUIR REQUESTED THAT PATIENT CALL HIS OFFICE TO SCHEDULE A FOLLOW UP APPOINTMENT WITHIN 3-5 DAYS. AND TO RECIEVE WOUND CARE. THIS RN INFROMED DR. MUIR THAT WOUND CARE COULD NOT SCHEDULE AN APPOINTMENT FOR 3-[address] MUIR STATED FOR SURE PATIENT NEEDED TO GO TO HIS OFFICE FOR FOLLOW UP. THIS RN GAVE THIS INFORMATION TO THE PATIENT. THE PATIENT STATED "OVER MY FUCKING BODY I WILL NOT GO TO THAT MAN." THIS RN AGAIN INSTRUCTED THE PATIENT TO FOLLOW UP WTIH DR. MUIR TO SCHEDULE AN APPOINTMENT AND THAT THE WOUND CLINIC WOULD BE CONTACTING HER FOR A FOLLOW UP APPOINTMENT. THIS RN GAVE THE PATIENT A PACKET TO ESTABLISH CARE WITH A PCP. PATIENT STATED TO ME SHE PLANS TO LEAVE HERE "USE A HELL OF A LOT OF DRUGS AND DOESNT GIVE A FUCK WHAT I HAVE TO SAY ABOUT THIS FUCKING LEG." THIS RN ASSISTED PATIENT WITH BELONGINGS WHILE GATHING BELONGS PATIENT STATED "I NEED TO GET THE FUCK OUT OF HERE AND BEGAN WHEELING SELF OUT." THIS RN GATHERED BELONGINGS TOOK THEM DOWN TO THE PATIENT ENTRANCE WHERE PATIENT WAS SITTING IN THE SMOKING AREA. INFORMED PATIENT ADVOCATE THAT PATIENT WAS IN SMOKING AREA. THIS RN ASKED PATIENT IF SHE WOULD GO BACK TO THE HOSPITAL SIDE SO WE COULD WAIT FOR THE [facility]. PATIENT STATED "IM GOING TO WAIT RIGHT FUCKING HERE." AGAIN INFORMED PATIENT ADVOCATE WHO CALLED [facility] THAT THIS IS WHERE THE PATIENT WOULD BE LOCATED.
== END 2019-08-20 11:21 | disposition home or self-care (01) | DRG 854 ==
LOC: ER 17:36 → MEDS 21:28 → ENPENDDIS 08-19 09:00 → MEDS 08-20 11:21
PROVIDERS: Family Medicine; Hospitalist; Orthopaedic Surgery; Pharmacist; Physician Assistant; ADMIT Internal Medicine
PROC: 0KBT0ZZ Excision of Left Lower Leg Muscle, Open Approach (ICD-10-PCS; principal; 2019-08-17 12:30)
DX: A40.0 Sepsis due to streptococcus, group A (principal); L03.116 Cellulitis of left lower limb; E87.1 Hypo-osmolality and hyponatremia; F31.81 Bipolar II disorder; L02.416 Cutaneous abscess of left lower limb; F41.9 Anxiety disorder, unspecified; G47.00 Insomnia, unspecified; F90.9 Attention-deficit hyperactivity disorder, unspecified type; F15.10 Other stimulant abuse, uncomplicated; F17.210 Nicotine dependence, cigarettes, uncomplicated; M60.862 Other myositis, left lower leg; Z91.19 Patient's noncompliance with other medical treatment and regimen
CPT/HCPCS: 36415; 73700; 80048; 80053; 80202; 81001; 83605; 84145; 85025; 85027; 85610; 85651; 85730; 86140; 87040; 87070; 87071; 87075; 87086; 87147; 87205; 93005; 93010; 94640; 94760; 96374; 96375; 96376; 99285-25; A9270; C1751; J0692; J1100; J1650; J1885; J2270; J2405; J2543; J2704; J3010; J3370; J7030; J7050; J7120

== ENCOUNTER 2019-08-23 19:44 | Emergency (ER) | payer SELFPAY ==
[~2019-08-23 19:44] MED LIST changes: +AMOCLA875 PO; +BECL25NI INH; +CLIN300 PO; +DIAZ5 PO; +LITH300C PO; +Percocet 10-321 EACH PO; +SERT100 PO; +Vsl#3 Capsule1 EACH PO; +ZOLP5 PO
== END 2019-08-23 20:42 | disposition left against medical advice (07) ==
LOC: ER 19:44
DX: Z53.21 Procedure and treatment not carried out due to patient leaving prior to being seen by health care provider (principal)

== ENCOUNTER 2020-02-08 03:08 | Emergency (ER) | payer SELFPAY ==
[~2020-02-08] VITALS: Ht 177.8 cm; Wt 77.1 kg
[2020-02-08] MEDS ORDERED: Cleocin HCl300 MG PO (04:41)
== END 2020-02-08 04:56 | disposition home or self-care (01) ==
LOC: ER 03:08
DX: S92.341A Displaced fracture of fourth metatarsal bone, right foot, initial encounter for closed fracture (principal); L73.9 Follicular disorder, unspecified; L03.115 Cellulitis of right lower limb; F15.10 Other stimulant abuse, uncomplicated; F17.210 Nicotine dependence, cigarettes, uncomplicated; Z91.030 Bee allergy status; Z91.048 Other nonmedicinal substance allergy status; Z91.040 Latex allergy status; Z79.899 Other long term (current) drug therapy; Z91.041 Radiographic dye allergy status; X50.1XXA Overexertion from prolonged static or awkward postures, initial encounter; Y93.01 Activity, walking, marching and hiking
CPT/HCPCS: 73620; 99283-25

== ENCOUNTER 2021-01-27 06:30 | Emergency (ER) | payer OTHER ==
[~2021-01-27] VITALS: Ht 172.7 cm; Wt 59.9 kg
[~2021-01-27 06:30] MED LIST changes: +Cleocin HCl300 MG PO
[2021-01-27] MEDS ORDERED: Diflucan150 MG PO (08:06)
[2021-01-27] MEDS ORDERED: Monodox100 MG PO (08:06)
[2021-01-27] MEDS ORDERED: Norco 5-325 Ta1 EACH PO (08:06)
== END 2021-01-27 09:26 | disposition home or self-care (01) ==
LOC: ER 06:30
DX: T24.031A Burn of unspecified degree of right lower leg, initial encounter (principal); X17.XXXA Contact with hot engines, machinery and tools, initial encounter; F17.200 Nicotine dependence, unspecified, uncomplicated; F15.29 Other stimulant dependence with unspecified stimulant-induced disorder; Z86.14 Personal history of Methicillin resistant Staphylococcus aureus infection; Z91.030 Bee allergy status; Z91.040 Latex allergy status; Z91.048 Other nonmedicinal substance allergy status
CPT/HCPCS: 99282; A9270

== ENCOUNTER → 2024-02-20 | Outpatient (CLI) | payer OTHER ==
[~2024-02-20] MED LIST changes: +Diflucan150 MG PO; +MAGCIT300 PO; +Norco 5-325 Ta1 EACH PO
[2024-02-22 15:10] LABS: APTIMA MEDIA TYPE Urine; C. TRACHOMATIS BY TMA Negative (Negative); N. GONORRHOEAE BY TMA Negative (Negative); SPECIMEN SOURCE Urine
== END | disposition home or self-care (01) ==
LOC: LAB SHORT 14:37
PROVIDERS: Nurse Practitioner Family
DX: K59.00 Constipation, unspecified (principal); R82.90 Unspecified abnormal findings in urine
CPT/HCPCS: 87086; 87491; 87591

== ENCOUNTER 2024-04-28 08:28 | Emergency (ER) | payer OTHER ==
[~2024-04-28] VITALS: Ht 170.2 cm; Wt 69.4 kg
[2024-04-28] MEDS ORDERED: Ondansetron HCl 2 MG / ML 2ML Vial IV ONE (09:10)
[2024-04-28] MEDS ORDERED: NS 1,000 ML IV SCH (09:10)
[2024-04-28 09:41] LABS: Source, Urine Voided
[2024-04-28 09:51] LABS: Appearance, Urine Clear (Clear); Bilirubin, Urine Neg (Neg); Blood, Urine Neg (Neg); Color, Urine Yellow (P-Yellow); Glucose Qualitative, Urine Neg (Neg); Ketones, Urine 2+ (Neg); Leukocyte Esterase, Urine 1+ (Neg); Nitrite, Urine Neg (Neg); Protein, Urine 2+ (Neg); Urobilinogen, Urine 1+ (Normal)
[2024-04-28 09:58] LABS: BASOPHILS PERCENT AUTO 0 % (0-2); EOSINOPHILS ABSOLUTE AUTO 0.03 K/mm3 (0.00-0.68); EOSINOPHILS PERCENT AUTO 1 % (0-6); Hematocrit 51.5 % (33.0-51.0); Hemoglobin 17.3 g/dL (11.5-16.0); IMMATURE GRAN ABSOLUTE AUTO 0.01 K/mm3 (0.00-0.10); IMMATURE GRAN PERCENT AUTO 0 % (0-1); LYMPHOCYTES ABSOLUTE AUTO 1.33 K/mm3 (0.84-5.20); LYMPHOCYTES PERCENT AUTO 25 % (21-46); MONOCYTES ABSOLUTE AUTO 0.38 K/mm3 (0.16-1.47); MONOCYTES PERCENT AUTO 7 % (4-13); Mean Corpuscular HGB 30.9 pg (26.0-34.0); Mean Corpuscular HGB Conc 33.6 g/dL (31.5-36.5); Mean Corpuscular Volume 92 fL (80-100); Mean Platelet Volume 9.4 fL (9.1-12.4); NEUTROPHILS ABSOLUTE AUTO 3.68 K/mm3 (1.96-9.15); NEUTROPHILS PERCENT AUTO 68 % (41-73); Platelet Count 282 K/mm3 (150-400); RDW Coefficient Variation 11.9 % (11.7-14.2); RDW Standard Deviation 40.4 fL (35.1-46.3); Red Blood Cell Count 5.59 M/mm3 (3.80-5.20); White Blood Cell Count 5.43 K/mm3 (4.00-11.30)
[2024-04-28 10:01] LABS: Bacteria Mod /hpf; Hyaline Casts 0-2 /lpf (0-2); Mucus Light (0-Heavy); Red Blood Cells, Urine 0-2 /hpf (0-2); Squamous Epithelial Cells Many /hpf (Few)
[2024-04-28] MEDS ORDERED: HyDROXyzine HCl 25 MG Tab PO ONE (10:10)
[2024-04-28 10:17] LABS: Albumin, Blood 4.1 g/dL (3.4-5.0); Albumin/Globulin Ratio 1.2 (0.8-1.8); Bilirubin, Total 1.9 mg/dL (0.1-1.0); Bun/Creatinine Ratio 14.6 (12.0-20.0); Calcium, Blood 9.8 mg/dL (8.5-10.1); Creatinine, Blood 0.75 mg/dL (0.40-1.00); Globulin, Blood 3.4 g/dL (2.2-4.0); Potassium, Blood 3.9 mmol/L (3.5-5.5); Total Protein, Blood 7.5 g/dL (6.4-8.2)
[2024-04-28 10:34] LABS: Influenza A, PCR NEGATIVE (NEGATIVE); Influenza B, PCR NEGATIVE (NEGATIVE); Resp Syncytial Virus, PCR NEGATIVE (NEGATIVE); SARS-Cov-2 (COVID-19) PCR, MMC NEGATIVE (NEGATIVE)
[2024-04-28] MEDS ORDERED: ONDA4ODT MM (13:12)
[2024-04-28] MEDS ORDERED: HYDHCL25 PO (13:12)
[2024-04-28 13:30] VITALS: BP 150/85
== END 2024-04-28 13:30 | disposition home or self-care (01) ==
LOC: ER 08:28
PROVIDERS: Emergency Medicine
DX: B34.9 Viral infection, unspecified (principal); F17.210 Nicotine dependence, cigarettes, uncomplicated; Z79.899 Other long term (current) drug therapy; Z91.040 Latex allergy status; Z91.030 Bee allergy status; Z91.048 Other nonmedicinal substance allergy status
CPT/HCPCS: 0241U; 80053; 81001; 84443; 84703; 85025; 87086; 93005; 93010; 96374; 99284-25; A9270; J2405; J7030